=== PATIENT | male | born 1960 | race Caucasian/White ===

== ENCOUNTER → 2019-08-06 | Outpatient (CLI) | payer BC ==
[2014-07-05 12:47] VITALS: BP 112/76
[~2019-08-06] MED LIST: ASPI-630 PO; LISI40TA PO; SIMV40TA18 PO
--- NOTE | 2019-08-06 11:49 | RAD ---
MR#: [id number] Date of Study: 08/06/2019 Ordering Physician: MATTI BERRY, Referring Physician: EDDIE JAMESON Tech: RT Shani Dumont) (N) APPROVED REPORT Test Type: Exercise Stress Nurse/Tech: RT Julia (Ruth) (N) Test Indications: CAD Cardiac History: 1 stent about 6 years ago Medications: see EHR Medical History: see EHR Resting ECG: Sinus rhythm Resting Heart Rate: 71 bpm Resting Blood Pressure: 161/75mmHg Pretest Chest Pain: None Nurse/Tech Notes Consent: The procedure was explained to the patient in lay terms. Informed consent was witnessed. Edouard eout was entered into [employer]. History and Stress Test performed by RT Shani Dumont) (N) POST EXERCISE Target HR: Yes Max HR: 147 bpm 91% of Maximum Predicted HR: 162 bpm Exercise duration: 6:35 min:sec, 2 Stage Exercise capacity: 7METs Max Blood Pressure: 178/82mmHg INTERPRETATION Stress EKG Conclusion: Baseline EKG showed sinus rhythm. No ischemic changes at peak stress. No arr hythmias. Imaging Protocol IMAGE PROTOCOL: Rest Tc-99m/stress Tc-99m 1 day Rest: Stress: Viability: Radiopharm.Tc99m [id number] Sestamibi Dose10.5mCi 31.7mCi Duration 15min. 10min. Img Date 08/06/2019 08/06/2019 Inj-Img [id number]. 60min. Post-Injection Exercise: 1 minute Rest Admin Site:IV - Right AntecubitalAdministrator: RT Julia (Ruth)(N) Stress Admin Site: IV - Right AntecubitalAdministrator: RT Shani Dumont)(N) STRESS DATA End Diast. Vol.90.0mlAv. Heart Rate95.0bpm End Syst. Vol.30.0mlCO Index BSA0.0L/min Myocardial Rqor472.0gEject. Hxbiqobs78.0% Stress Rates Pk. Fill Rate4.46EDV/secLVtime Pk. Fill 194.07msec Pk. Empty Rate5.20ESV/secLVtime Pk. Eject99.34msec 1/3 Pk. Fill0.83EDV/sec Stress Scores Regional WT0.00Summed WT0.00 Regional WM0.00Summed WM2.00 Study quality was good. Left Ventricular size was Normal at Rest and Stress. Lung uptake was . Left Ventricular ejection fraction is 74%. The rest and stress images show normal perfusion, normal contraction and thickening. LV Perf. Quant 17 Seg. SSS0.00 17 Seg. SRS0.00 17 Seg. SDS0.00 Stress Defect Extent (% LAD)0.00Rest Defect Extent (% LAD)0.00Rev. Defect Extent (% LAD)0.00 Stress Defect Extent (% LCX) 0.00Rest Defect Extent (% LCX)0.00Rev. Defect Extent (% LCX)0.00 Stress Defect Extent (% RCA)0.00Rest Defect Extent (% RCA)0.00Rev. Defect Extent (% RCA)0.00 Stress Defect Extent (% GARCIA)0.00Rest Defect Extent (% GARCIA)0.00Rev. Defect Extent (% GARCIA)0.00 Conclusion 1. Treadmill exercise cardioisotope stress test did not show any evidence of ischemia or infarct. 2. Normal left ventricular systolic function with ejection fraction calculated at 74%. 3. Low risk for cardiac events. Signed by : Roberto Miner, Electronically Approved : 08/06/2019 11:48:51
--- NOTE | 2019-08-06 16:00 | RAD ---
MR#: [id number] Date of Study: 08/06/2019 Ordering Physician: MATTI SANCHEZ, Referring Physician: MATTI SANCHEZ, Yarelis: Ginger Angela RDMS RVT APPROVED REPORT Patient Location: OUT-PATIENT Indications pvd. h/o bilat stints Risk Factors Smoking Grayscale images of the bilateral lower extremity arterial vessels demonstrate diffuse moderate plaqu e. On the right side no focal high-grade stenosis is identified. Velocities are diminished below the knee suggestive of moderate to severe diffuse disease. Similarly on the left side velocities are agai n diminished below the knee suggestive of moderate diffuse disease. No focal high-grade stenosis is i dentified. VELOCITY AND DOPPLER WAVEFORM ANALYSIS RIGHT cm/secWaveformSeverity LEFT cm/secWaveform Severity pCFA 143.0TriphasicpCFA 127.0Triphasic Prof Fem Art. 44.0BiphasicProf Fem Art. 171.0Biphasic Fem Art Prox. 157.0TriphasicFem Art Prox. 117.0Biphasic Fem Art Mid. 97.0TriphasicFem Art Mid. 99.0Triphasic Fem Art Dist. 93.0TriphasicFem Art Dist. 115.0Triphasic Pop Art(Fossa) 50.0BiphasicPop Art(AK) 45.0Triphasic MUSIC ENGRAVER Prox. 75.0TriphasicPTA Prox. 48.0Biphasic MUSIC ENGRAVER Dist. 81.0TriphasicPTA Dist. 46.0Biphasic Per Art Mid. 44.0BiphasicPer Art Mid. 28.0Biphasic ELÍAS Prox. 41.0BiphasicATA Prox. 27.0Biphasic DPA 26BiphasicDPA 30Biphasic Critical Notification Critical Value: No <Conclusion> 1. Probable moderate diffuse disease without any focal critical stenosis is identified Signed by : Matti Sanchez, Electronically Approved : 08/06/2019 16:00:11
== END | disposition home or self-care (01) ==
LOC: NM 07:45
PROVIDERS: ATTEND Internal Medicine Cardiovascular Disease
DX: I25.10 Atherosclerotic heart disease of native coronary artery without angina pectoris (principal); I73.9 Peripheral vascular disease, unspecified; Z95.5 Presence of coronary angioplasty implant and graft
CPT/HCPCS: 78452; 93017; 93925; A9500; 96376

== ENCOUNTER 2020-03-20 10:36 | Emergency (ER) | payer BC ==
[~2020-03-20] VITALS: Ht 175.3 cm; Wt 91.9 kg
[2020-03-20 10:45] VITALS: BP 169/102
--- NOTE | 2020-03-20 10:58 | PHYS DOC ---
Past History Past Medical History: Hypertension Smoking: Cigarettes General Adult EDM: Chief Complaint: BACK INJURY HPI: HPI: Patient is a 60-year-old male presents with a chief complaint of left flank/back pain after a fall yesterday patient was on a ladder and fell approximately 2 feet onto a cinder block and hit him in the left lateral lumbar area. Patient had pain began yesterday evening and now is radiating partially down the left leg. Patient denies any weakness or numbness. Patient denies any bowel or bladder incontinence. Patient denies any hematuria. Pain is worse with movement and better at rest. Pain is mild at rest and severe with movement. Pain is throbbing and stabbing. Review of Systems: Review of Systems: Constitutional: Denies fever or chills Eyes: Denies change in visual acuity HENT: Denies nasal congestion or sore throat Respiratory: Denies cough or shortness of breath Cardiovascular: Denies chest pain or edema GI: Denies abdominal pain, nausea, vomiting, bloody stools or diarrhea : Denies dysuria Musculoskeletal: Complains of left flank pain Integument: Denies rash Neurologic: Denies headache, focal weakness or sensory changes Endocrine: Denies polyuria or polydipsia Lymphatic: Denies swollen glands Psychiatric: Denies depression or anxiety Heart Score: Risk Factors: Risk Factors: DM, Current or recent (<one month) smoker, HTN, HLP, family history of CAD, obesity. Risk Scores: Score 0 - 3: 2.5% MACE over next 6 weeks - Discharge Home Score 4 - 6: 20.3% MACE over next 6 weeks - Admit for Clinical Observation Score 7 - 10: 72.7% MACE over next 6 weeks - Early Invasive Strategies Current Medications: Current Meds: Current Medications Medications (Trade) Dose Ordered Sig/Peace Start Time Stop Time Status Last Admin Dose Admin Acetaminophen/ Hydrocodone Bitart (Lortab 10/325) 1 tab 1X ONCE 03/20/20 11:00 03/20/20 11:01 UNV Allergies: Allergies: Allergies Coded Allergies Type Severity Reaction Last Updated Verified No Known Drug Allergies 06/29/14 No Physical Exam: PE: Constitutional: Well developed, well nourished, no acute distress, non-toxic appearance. [] HENT: Normocephalic, atraumatic, bilateral external ears normal, no trismus nose normal. [] Eyes: PERRLA, EOMI, conjunctiva normal, no discharge. [] Neck: Normal range of motion, no tenderness, supple, no stridor. [] Cardiovascular:Heart rate regular rhythm, peripheral pulses intact, cap refill is brisk Lungs & Thorax: Bilateral breath sounds clear, no respiratory distress Abdomen:, soft, no tenderness, no masses, no pulsatile masses. [] Skin: Warm, dry, no erythema, no rash. [] Back: Tenderness in the left lateral lumbar area with some muscle spasms no significant midline tenderness Extremities: No tenderness, no cyanosis, no clubbing, ROM intact, no edema. [] Neurologic: Alert and oriented X 3, normal motor function, normal sensory function, no focal deficits noted. [] No saddle anesthesia, dorsiflexion of the great toes intact bilateral lower extremities Psychologic: Affect normal, judgement normal, mood normal. [] Current Patient Data: Labs: Laboratory Tests Test 03/20/20 11:10 Urine Collection Type Unknown Urine Color Yellow Urine Clarity Clear Urine pH 7.5 Urine Specific Knox 1.015 Urine Protein Neg Urine Glucose (UA) Neg mg/dL Urine Ketones (Stick) Neg mg/dL Urine Blood Trace Urine Nitrite Neg Urine Bilirubin Neg Urine Urobilinogen Dipstick 0.2 mg/dL Urine Leukocyte Esterase Neg Urine RBC 3-5 /HPF Urine WBC Rare /HPF Urine Squamous Epithelial Cells Occ /LPF Urine Bacteria 0 /HPF Current Medications Medications (Trade) Dose Ordered Sig/Peace Route PRN Reason Start Time Stop Time Status Last Admin Dose Admin Acetaminophen/ Hydrocodone Bitart (Lortab 10/325) 1 tab 1X ONCE PO 03/20/20 11:00 03/20/20 11:01 DC 03/20/20 11:07 Vital Signs: Vital Signs Date Time Temp Pulse Resp B/P (MAP) Pulse Ox O2 Delivery O2 Flow Rate FiO2 03/20/20 11:07 20 Room Air 03/20/20 10:45 97.9 87 169/102 (124) 96 EKG: EKG: [] Radiology/Procedures: Radiology/Procedures: [][address] [address] IMAGING REPORT Signed PATIENT: BECKI SEVILLA ACCOUNT: [id number] : 1960 LOCATION: ER AGE: 60 SEX: M EXAM STATUS: REG ER ORD. PHYSICIAN: SELENE FONTANEZ MD REASON: FELL OFF LADDER ONTO BACK, LOW BACK PAIN PROCEDURE: LUMBAR SPINE 2-3V Lumbar spine 3 views. HISTORY: Follow-up lateral on the back, low back pain 3 views were taken of the lumbar spine. Spine is in normal alignment. Disc spaces are normal in height. There are mild hypertrophic changes. There is vascular calcification without an aortic aneurysm. There is no compression fracture. There are fractures of the transverse processes of L2-L4 on the left. IMPRESSION: 1. Fracture transverse processes of L2, L3 and L4 on the left. Electronically signed by: Jose Levy MD (03/20/2020 11:39 AM) [id number] DICTATED AND SIGNED BY: JOSE LEVY MD DATE: 03/20/20 1139 CC: HERNANDEZ VELOZ MD; SELENE FONTANEZ MD ~ Course & Med Decision Making: Course & Med Decision Making Pertinent Labs and Imaging studies reviewed. (See chart for details) [] 60-year-old male presents with left-sided lumbar pain after a fall. Patient has 3 transverse process fractures of his lumbar spine. Patient has 3-5 red cells on his UA but no gross hematuria not more than 50 red cells, doubt significant kidney injury discussed with patient return if increased pain or chloe blood in his urine. Dragon Disclaimer: Dragon Disclaimer: This electronic medical record was generated, in whole or in part, using a voice recognition dictation system. Departure Departure: Impression: Primary Impression: Lumbar transverse process fracture Additional Impression: Back pain Disposition: 01 HOME/RESIDENCE PRIOR TO ADM Condition: STABLE Referrals: HERNANDEZ VELOZ MD (PCP) 2-3 days Patient Instructions: Back Pain, Adult, Back, Compression Fracture Additional Instructions: EMERGENCY DEPARTMENT GENERAL DISCHARGE INSTRUCTIONS Thank you for coming to the [facility] Emergency Department (ED) today and trusting us with you care. We trust that you had a positivie experience in our Emergency Department. YOUR FOLLOW UP INSTRUCTIONS ARE FOLLOWS: 1. Do you have a private Doctor? If you do not have a private doctir, please ask for a resource list of physicians or clinics that may be able to assist you with follow up care. 2. The Emergency Physicain has interpreted your x-rays. The X-Ray specialist will also review them. If there is a change in the findingd, you will be notified in 48 hours when at all possible. 3. A lab test or culture has been done, your results will be reviewed and you will be notified if you need a change in treatment. ADDITIONAL INSTRUCTIONS AND INFORMATION: 1. Your care today has been supervised by a physician who is specially trained in emergency care. Many problems require more than one evaluation for a complete diagnosis and treatment. We recommend that you schedule your follow up appointment as recommended to ensure complete treatment of you illness or injury. If you are unable to obtain follow up care and continue to have a problem, or if your consition worsens, we recommend that you return to the ED. 2. We are not able to safelymdetermine your condition over the phone nor are we able to give sound medical advice over the phone. For these safety reasons, if you call for medical advice we will ask you to come to the ED for further evaluation. 3. If you have any questions regarding these discharge instructions please call the ED at [phone]. SAFETY INFORMATION: In the interest of safety, wellness, and injury prevention; we encourage you to wear your sealbelt, if you smoke; quite smoking, and we encourage family to use a protective helmet for bicycling and other sporting events that present an increased risk for head injusry. IF YOUR SYMPTOMS WORSEN OR NEW SYMPTOMS DEVELOP, OR YOU HAVE CONCERNS ABOUT YOUR CONDITION; OR IF YOUR CONDITION WORSENS WHILE YOU ARE WAITING FOR YOUR FOLLOW UP APPOINTMENT; EITHER CONTACT YOUR PRIMARY CARE DOCTOR, THE PHYSICIAN WHOSE NAME AND NUMBER YOU WERE GIVEN, OR RETURN TO THE ED IMMEDIATELY. Scripts Docusate Sodium (COLACE) 100 Mg Capsule 1 CAP PO BID for constipation for 10 Days, #20 CAP 0 Refills Prov: SELENE FONTANEZ MD 03/20/20 Oxycodone Hcl/Acetaminophen (PERCOCET 7.5-325 MG TABLET ) 1 Each Tablet 1 TAB PO PRN QID PRN for PAIN MDD 4 Tablet(s) for 5 Days, #15 TAB 0 Refills Prov: SELENE FONTANEZ MD 03/20/20 Justification of Admission: Justification of Admission: Justification of Admission Dx: N/A SELENE FONTANEZ MD Mar 20, 2020 10:58
[2020-03-20] MEDS ORDERED: HYDROcodone/APAP 10/325 1 TAB TABLET PO ONE (11:00)
[2020-03-20 11:34] LABS: BILIRUBIN,URINE NEG (NEG); CLARITY,URINE CLEAR; COLOR,URINE YELLOW; GLUCOSE,URINE NEG (NEG); NITRITE,URINE NEG (NEG); UROBILINOGEN,URINE 0.2 mg/dL (0.2 mg/dL)
[2020-03-20 11:35] LABS: BACTERIA,URINE 0 /HPF (0-FEW); SQUAMOUS EPITHELIAL CELL,UR OCC /LPF; WBC,URINE RARE /HPF (0-4)
--- NOTE | 2020-03-20 11:42 | RAD ---
Lumbar spine 3 views. HISTORY: Follow-up lateral on the back, low back pain 3 views were taken of the lumbar spine. Spine is in normal alignment. Disc spaces are normal in height. There are mild hypertrophic changes. There is vascular calcification without an aortic aneurysm. There is no compression fracture. There are fractures of the transverse processes of L2-L4 on the left. IMPRESSION: 1. Fracture transverse processes of L2, L3 and L4 on the left. Electronically signed by: Jose Levy MD (03/20/2020 11:39 AM) [id number]
[2020-03-20] MEDS ORDERED: DOCU-109 PO (11:55)
[2020-03-20] MEDS ORDERED: OXYC1TAB19 PO (11:55)
== END 2020-03-20 12:00 | disposition home or self-care (01) ==
LOC: ER 10:36
DX: S32.028A Other fracture of second lumbar vertebra, initial encounter for closed fracture (principal); S32.038A Other fracture of third lumbar vertebra, initial encounter for closed fracture; S32.048A Other fracture of fourth lumbar vertebra, initial encounter for closed fracture; I10 Essential (primary) hypertension; F17.210 Nicotine dependence, cigarettes, uncomplicated; W11.XXXA Fall on and from ladder, initial encounter; Y93.89 Activity, other specified; Y92.89 Other specified places as the place of occurrence of the external cause; Y99.8 Other external cause status
CPT/HCPCS: 72100; 81001; 99284

== ENCOUNTER → 2020-06-15 | Outpatient (CLI) | payer BC ==
[~2020-06-15] MED LIST changes: +DOCU-109 PO; +OXYC1TAB19 PO
--- NOTE | 2020-06-15 14:41 | RAD ---
EXAM: Bilateral lower extremity arterial Doppler sonogram. HISTORY: Peripheral artery disease. TECHNIQUE: Roberts scale and color Doppler sonographic imaging of the lower extent of the arteries with spectral waveform analysis was performed. COMPARISON: None. FINDINGS: There is calcified atherosclerotic plaque throughout the bilateral lower extremity arteries . No arterial occlusion is seen. There are abnormal monophasic waveforms within the right common femoral, deep femoral and proximal cadet perficial femoral arteries and right peroneal, anterior tibial and dorsalis pedis artery, suggesting hemodynamically significant proximal stenosis. There are biphasic and triphasic waveforms within the remainder of the right lower extremity arteries. There is an elevated peak systolic velocity within t he proximal right superficial femoral artery, measuring 177 cm/s. There are abnormal diminished monophasic waveforms throughout the left lower extremity arteries. IMPRESSION: 1. Abnormal monophasic waveforms throughout the left lower extremity arteries suggesting low flow due to hemodynamically significant proximal stenosis. No left lower extremity arterial occlusion is seen . 2. Suspected hemodynamically significant stenosis involving the proximal right superficial femoral ar milo. There are also abnormal monophasic waveforms within the right common femoral, deep femoral, per henson, anterior tibial and dorsalis pedis arteries likely due to hemodynamically significant proximal stenosis. 3. Bilateral lower extremity calcified atherosclerotic plaque. Electronically signed by: Jessie Dudley MD (06/15/2020 2:39 PM) [id number]
== END ==
LOC: US 10:57
PROVIDERS: ATTEND Internal Medicine Cardiovascular Disease
DX: I70.203 Unspecified atherosclerosis of native arteries of extremities, bilateral legs (principal)
CPT/HCPCS: 93925

== ENCOUNTER → 2020-08-25 | Outpatient (CLI) | payer BC ==
[~2020-08-25] MED LIST changes: -LISI40TA PO; +LISI40TA6 PO
--- NOTE | 2020-08-25 10:55 | RAD ---
MR#: [id number] Date of Study: 08/25/2020 Ordering Physician: MATTI SANCHEZ, Referring Physician: MATTI SANCHEZ, Tech: Yaneli Rojas RVT, [facility] APPROVED REPORT Patient Location: OUT-PATIENT Indications AAA Grayscale images of the abdominal aorta reveals diffuse atherosclerosis without any focal obstruction on limited images. There is ectasia of the distal aorta but no clear evidence of aneurysm with a ma ximum diameter of 2.4 cm. Velocities in the aorta and distal aortic bifurcation are grossly within n ormal limits. No significant iliac aneurysm is identified on limited images. Risk Factors Hypertension Smoking Duplex Results A/PTransverseLongitudinal Proximal Aorta 2.2cm2.3cm Mid Aorta 2.0cm1.9cm Distal Aorta 2.1cm2.4cm Rt. Common Iliac Artery0.5cm0.9cm Lt. Common Iliac Artery 0.6cm0.7cm Doppler VelocityWaveform Proximal Aorta 118.5 cm/sec Aorta Mid. 115.3 cm/sec Distal Aorta 62.4 cm/sec Rt. Common Iliac Qruibo90.0 cm/sec Lt. Common Iliac Artery 76.0 cm/sec Critical Notification Critical Value: No <Conclusion> 1. Technically limited images but no clear evidence of abdominal aortic aneurysm, there is mild ecta marcus of the distal aorta. Signed by : Matti Sanchez, Electronically Approved : 08/25/2020 10:55:13
== END ==
LOC: US 08:46
PROVIDERS: ATTEND Internal Medicine Cardiovascular Disease
DX: I77.811 Abdominal aortic ectasia (principal); I70.0 Atherosclerosis of aorta
CPT/HCPCS: 76770

== ENCOUNTER → 2021-01-10 | Outpatient (CLI) | payer BC ==
--- NOTE | 2021-01-10 11:38 | CARD ---
MR#: [id number] Date of Study: 01/10/2021 Ordering Physician: MATTI BERRY, Referring Physician: MATTI BERRY, Tech: Chris Nolasco [facility] APPROVED REPORT EXAM: Two-dimensional and M-mode echocardiogram with Doppler and color Doppler. Other Information Quality : GoodHR: 68bpm Rhythm : NSR INDICATION CAD RISK FACTORS Hypertension Family History Smoking 2D DIMENSIONS Left Atrium(2D)3.9 (1.6-4.0cm)IVSd1.1 (0.7-1.1cm) Aortic Root(2D)3.0 (2.0-3.7cm)LVDd4.6 (3.9-5.9cm) PWd1.1 (0.7-1.1cm)LVDs2.7 (2.5-4.0cm) Aortic Valve AoV Peak Brad.1.3cm/sAoV VTI24.0cm LVOT Peak Brad.1.1cm/sLVOT VTI 21.00cm Mitral Valve MV E Velocity0.7cm/sMV DECEL [id number] MV A Velocity0.7cm/sE/A Ratio1.0 TDI E/Lateral E'7.0E/Medial E'14.0 Tricuspid Valve TR P. [id number]/sTR Peak Gr.14mmHg LEFT VENTRICLE The left ventricle is normal size. There is normal left ventricular wall thickness. The left ventricu lar systolic function is normal. The ejection fraction is 55-60%. There is normal LV segmental wall m otion. The left ventricular diastolic function and filling is normal for age. No left ventricle throm bus noted on this study. There is no ventricular septal defect visualized. There is no left ventricul ar aneurysm. There is no mass noted in the left ventricle. RIGHT VENTRICLE The right ventricle is normal size. There is normal right ventricular wall thickness. The right ventr icular systolic function is normal. ATRIA The left atrium size is normal. The right atrium size is normal. The interatrial septum is intact wit h no evidence for an atrial septal defect or patent foramen ovale as noted on 2-D or Doppler imaging. AORTIC VALVE The aortic valve is mildly thickened but opens well. Doppler and Color Flow revealed no significant a ortic regurgitation. There is no significant aortic valvular stenosis. There is no aortic valvular ve getation. MITRAL VALVE The mitral valve is normal in structure and function. There is no evidence of mitral valve prolapse. There is no mitral valve stenosis. Doppler and Color Flow revealed no mitral valve regurgitation note d. TRICUSPID VALVE The tricuspid valve is normal in structure and function. Doppler and Color Flow revealed trace tricus pid regurgitation. There is no tricuspid valve prolapse or vegetation. There is no tricuspid valve st enosis. PULMONIC VALVE The pulmonary valve is normal in structure and function. Doppler and Color Flow revealed no pulmonic valvular regurgitation. There is no pulmonic valvular stenosis. GREAT VESSELS The aortic root is normal in size. The ascending aorta is normal in size. The pulmonary artery is nor mal. The IVC is normal in size and collapses >50% with inspiration. PERICARDIAL EFFUSION There is no pleural effusion. There is no evidence of significant pericardial effusion. Critical Notification Critical Value: No <Conclusion> The left ventricular systolic function is normal. The ejection fraction is 55-60%. There is normal LV segmental wall motion. Trace tricuspid regurgitation. There is no evidence of significant pericardial effusion. Signed by : Roberto Miner, Electronically Approved : 01/10/2021 11:37:41
== END ==
LOC: ECHO 07:47
PROVIDERS: ATTEND Internal Medicine Cardiovascular Disease
DX: I25.10 Atherosclerotic heart disease of native coronary artery without angina pectoris (principal)
CPT/HCPCS: 93306

== ENCOUNTER → 2021-06-26 | Outpatient (CLI) | payer BC ==
--- NOTE | 2021-06-26 13:37 | RAD ---
MR#: [id number] Date of Study: 06/26/2021 Ordering Physician: ASTON BERRY, Referring Physician: ASTON BERRY, Tech: Julianna Andino RVT, [facility] APPROVED REPORT Patient Location: OUT-PATIENT Exam Type: Ankle to Brachial Index Indications Claudication: Moderately decreased bilateral ABIs as noted above. Risk Factors Hypertension Smoking Pressures/Indices RightABI LeftABI Brachial 101knPk3.83Brachial 878haQc5.78 Ankle(PT) 127mmHgAnkle(PT) 130mmHg Ankle(DP) 137mmHgAnkle(DP) 120mmHg Critical Notification Critical Value: No <Conclusion> 1. Moderately decreased bilateral ABIs as noted above. Signed by : Aston Berry, Electronically Approved : 06/26/2021 13:37:08
--- NOTE | 2021-06-26 13:46 | RAD ---
MR#: [id number] Date of Study: 06/26/2021 Ordering Physician: MATTI BERRY, Referring Physician: MATTI BERRY, Tech: Julianna Andino RVT, [facility] APPROVED REPORT Patient Location: OUT-PATIENT Indications Claudication: Grayscale images demonstrate moderate to severe diffuse atherosclerotic plaque. On the right side there are monophasic waveforms with with likely greater than 50% stenosis involving the right proximal SFA.. Below the knee there are diminished waveforms in the peroneal artery. Dim inished velocities are also noted in the anterior and posterior tibial arteries. There is probably d iffuse atherosclerosis and small vessel disease. On the left side similarly there are monophasic waveforms without any focal high-grade obstruction no lucille from the common femoral artery to the popliteal segment. Below the knee there is three-vessel ru noff with diminished waveforms consistent with moderate diffuse disease. Risk Factors Hypertension Smoking VELOCITY AND DOPPLER WAVEFORM ANALYSIS RIGHT cm/secWaveformSeverity LEFT cm/secWaveform Severity dCFA 185.0MonophasicdCFA 165.0Monophasic Prof Fem Art. 78.0MonophasicProf Fem Art. 67.0Monophasic Fem Art Prox. 211.0MonophasicFem Art Prox. 77.0Monophasic Fem Art Mid. 34.0MonophasicFem Art Mid. 102.0Monophasic Fem Art Dist. 45.0MonophasicFem Art Dist. 52.0Monophasic Pop Art(Fossa) 43.0MonophasicPop Art(AK) 52.0Monophasic STRIP ROLLER Prox. 25.0MonophasicPTA Prox. 41.0Monophasic STRIP ROLLER Dist. 39.0MonophasicPTA Dist. 31.0Monophasic Per Art Dist.12.0MonophasicPer Art Dist.13.0Monophasic ELÍAS Prox. 24.0MonophasicATA Prox. 22.0Monophasic DPA 11MonophasicDPA 11Monophasic Critical Notification Critical Value: No <Conclusion> 1. Probable greater than 50% stenosis involving the right SFA. Otherwise no focal stenosis identifi ed with severe diffuse disease in the bilateral lower extremity arterial vessels below the knee Signed by : Matti Berry, Electronically Approved : 06/26/2021 13:46:06
--- NOTE | 2021-06-26 17:05 | RAD ---
MR#: [id number] Date of Study: 06/26/2021 Ordering Physician: MATTI BERRY, Referring Physician: MATTI BERRY, Tech: Julianna Andino RVT, [facility] APPROVED REPORT Patient Location: OUT-PATIENT Laterality:Bilateral Indications Bruit Grayscale images of the bilateral carotid vessels demonstrates mild to moderate diffuse atheroscleros is. On the right side there is likely moderate 50 to 69% stenosis involving the mid internal carotid dae ry. Normal ICA to CCA ratios. Vertebral velocities are antegrade. In the left side overall 0 to less than 50% stenosis with normal ICA to CCA ratios and antegrade vert ebral velocities. Risk Factors Hypertension: Smoking Doppler Spectral Velocity Analysis Right Left pCCA 98/28 cm/spCCA 138/25 cm/s mCCA 80/24 cm/smCCA 73/24 cm/s dCCA 59/21 cm/sdCCA 82/24 cm/s ECA 118/ cm/sECA 136/ cm/s pICA 94/25 cm/spICA 54/12 cm/s Solomon 144/46 cm/smICA 51/13 cm/s dICA 82/24 cm/sdICA 57/19 cm/s Vert. 52/ cm/sVert. 49/ cm/s ICA/CCA 1.47ICA/CCA 0.41 Critical Notification Critical Value: No <Conclusion> 1. Moderate right internal carotid arterial disease. No significant left-sided disease. Signed by : Matti Berry, Electronically Approved : 06/26/2021 17:05:03
== END ==
LOC: US 09:38
PROVIDERS: ATTEND Internal Medicine Cardiovascular Disease
DX: I73.9 Peripheral vascular disease, unspecified (principal); I77.89 Other specified disorders of arteries and arterioles; R09.89 Other specified symptoms and signs involving the circulatory and respiratory systems
CPT/HCPCS: 93880; 93923; 93925